=== PATIENT | female | born 1965 | race American Indian/Alaskan Native ===

== ENCOUNTER 2017-12-28 12:51 | Day surgery (SDC) | payer OTHER ==
[~2017-12-28 12:51] MED LIST: NACL 0.9% 1000 ML 1,000 ML IV SCH
--- NOTE | 2017-12-28 17:40 | Anesthesia Consultation ---
Anesthesia Consult and Med Hx Date of service: 12/28/17 - Airway Anesthetic Teeth Evaluation: Good ROM Head & Neck: Adequate Mental/Hyoid Distance: Adequate Mallampati Class: Class III Intubation Access Assessment: Possibly Difficult - Pre-Operative Health Status ASA Pre-Surgery Classification: ASA2 Proposed Anesthetic Plan: MAC - Cardiovascular System Hx Hypertension: Yes (no meds) - Other Systems Hx Obesity: Yes (BMI 34.1)
--- NOTE | 2017-12-28 17:40 | Anesthesia Day of Surgery ---
Anesthesia Day of Surgery - Day of Surgery Patient Examined: Yes Patient H&P Reviewed: Yes Patient is NPO: Yes
[2017-12-28] MEDS ORDERED: XYLOCAINE MPF 2% ONE (18:00)
[2017-12-28] MEDS ORDERED: DIPRIVAN 10 MG/ML IV ONE ×2 (18:30→19:35)
[2017-12-28] MEDS ORDERED: VERSED ONE (18:58)
--- NOTE | 2017-12-28 20:06 | Operative Report ---
Operative Report Operative Report: Date of procedure: 12/28/2017 Procedure: Colonoscopy with Multiple Hot Biopsy Polypectomies, Polyp Ablations. Attending physician: Jonathon Valdez MD Foundation Assistant: Jonathon Valdez MD Indication: Patient is a 52-year-old female who presents for screening colonoscopy. This colonoscopy serves to evaluate patient so that treatment may be directed based on the findings. Consent: Informed consent was obtained after advising the patient and family regarding nature of this procedure, its indications, potential benefits as well as possible complications including but not limited to bleeding perforation and adverse reaction to medication, infection as well as other cardiopulmonary complications. An informed written and verbal consent was then obtained after due opportunity was provided for questions and answers. Monitoring: Patient was monitored continuously with pulse oximetry and electrocardiographic recordings as well as blood pressure recordings. Vital signs remained stable throughout this procedure with no untoward events. Preoperative assessment: Patient was assessed immediately prior to this procedure for capacity to tolerate monitored anesthesia care and moderate sedation as well as general anesthesia. Patient's ASA classification is 2, Mallampati class is 2, Hyomental distance is 3. Instrument: [employer] video colonoscope Medications: Propofol given intravenously in divided doses. For details please refer to anesthesia records. Description of procedure: Patient was placed in the left lateral decubitus position after achieving sedation, a digital rectal examination was performed following which the colonoscope was introduced into the anal verge and advanced to the cecum which was identified by the cecal valve, the appendiceal orifice, as well as by the cecal strap and direct transillumination. The colonoscope was subsequently withdrawn with careful inspection of all mucosal surfaces. Patient tolerated this procedure well and was subsequently taken to the recovery room. The following findings were noted. Findings: Preparation was fair. Patient had few diminutive diverticula in the sigmoid colon. Also, in the sigmoid colon, patient had multiple diminutive polyps. These polyps measured from 3-6 mm. The polyps were removed by hot biopsy polypectomy. In the descending colon, patient had diminutive polyps which were removed by hot biopsy polypectomy. In the rectum, patient multiple diminutive polyps that were ablated. On the retroflexed view of the anal verge, patient had internal hemorrhoids. The rest of the colon to the cecum was normal. Impression: Diminutive sigmoid colon polyps status post hot biopsy polypectomy. Descending colon polyp status post hot biopsy polypectomy. Diminutive rectal polyps status post ablation. Diverticula disease of the colon. Internal hemorrhoids. Plan: Follow pathology report. High-fiber diet. Repeat colonoscopy in 1 year, due to presence of multiple colon polyps E if the polyps are adenomatous on pathology. If the polyps are hyperplastic, patient should repeat colonoscopy in 5 years.
--- NOTE | 2017-12-28 20:07 | Discharge Summary ---
Short Stay Discharge Plan Activity: advance as tolerated Weight Bearing Status: Weight Bear as Tolerated Diet: regular Follow up with: ROMEO BEACH MD [Other] - 7 Days
== END 2017-12-28 12:52 | disposition home or self-care (01) ==
LOC: GIO 12:51
PROVIDERS: ATTEND Internal Medicine Gastroenterology
DX: K59.00 Constipation, unspecified (principal); K63.89 Other specified diseases of intestine; K64.8 Other hemorrhoids; K57.30 Diverticulosis of large intestine without perforation or abscess without bleeding; E66.9 Obesity, unspecified; Z68.34 Body mass index [BMI] 34.0-34.9, adult; Z90.89 Acquired absence of other organs; Z79.899 Other long term (current) drug therapy; Z88.8 Allergy status to other drugs, medicaments and biological substances; Z82.49 Family history of ischemic heart disease and other diseases of the circulatory system
CPT/HCPCS: 45384; 45388; 88305; J2250; J2704; J7030